=== PATIENT | female | born 1980 | race American Indian/Alaskan Native ===

== ENCOUNTER 2019-01-01 10:29 | Emergency (ER) | payer SELFPAY ==
[2019-01-01 10:58] VITALS: BP 160/110
--- NOTE | 2019-01-01 11:42 | Emergency Department Report ---
Minor Respiratory - HPI Chief Complaint: Upper Respiratory Infection Stated Complaint: FLU LIKE SYMPTOMS Time Seen by Provider: 01/01/19 11:15 Duration: 3 Days Pain Location: Chest (soreness in the chest with coughing) Minor Respiratory: Yes Able to Tolerate Fluids, Yes Cough (yellow sputum), Yes Chest Pain, No Rhinorrhea, No Sore Throat, No Ear Pain, No Sick Contacts, No Hemoptysis, No Shortness of Breath, No Fever ED Review of Systems ROS: Stated complaint: FLU LIKE SYMPTOMS Other details as noted in HPI Comment: All other systems reviewed and negative ED Past Medical Hx - Past Medical History Previous Medical History?: Yes Hx Hypertension: Yes - Surgical History Past Surgical History?: No - Social History Smoking Status: Never Smoker Substance Use Type: Alcohol, Marijuana Minor Respiratory Exam - Exam General: Vital signs noted. No distress. Alert and acting appropriately. HEENT: Yes Moist Mucous Membranes, No Pharyngeal Erythema, No Pharyngeal Exudates, No Rhinorrhea, No Conjuctival Injection, No Frontal Tenderness, No Maxillary Tenderness Ear: Neither TM Bulge, Neither TM Erythema, Neither EAC Pain, Neither EAC Discharge Neck: Yes Supple, No Adenopathy Lungs: Yes Good Air Exchange, No Wheezes, No Ronchi, No Stridor, No Cough, No Labored Respirations, No Retractions, No Use of Accessory Muscles, No Other Abnormal Lung Sounds Heart: Yes Regular, No Murmur Abdomen: Yes Normal Bowel Sounds, No Tenderness, No Peritoneal Signs Skin: No Rash, No Edema Neurologic: Alert and oriented, no deficits. Musculoskeletal: Unremarkable. ED Course Vital Signs 01/01/19 10:56 Temperature 98 F Pulse Rate 91 H Respiratory 18 Rate Blood Pressure 160/110 O2 Sat by Pulse 99 Oximetry ED Medical Decision Making - Medical Decision Making Patient requests a test before receiving her x-ray. (Test is negative. Patient was called by radiology 3-4 times and did not answer appears to have left the emergency department. Patient left without telling anyone that she would be leaving. Critical care attestation.: If time is entered above; I have spent that time in minutes in the direct care of this critically ill patient, excluding procedure time. ED Disposition Clinical Impression: Cough Disposition: DC-07 LEFT AGAINST MED ADVICE Is pt being admited?: No Does the pt Need Aspirin: No Condition: Stable Referrals: MARGO MINOR MD [Primary Care Provider] - 3-5 Days Time of Disposition: 14:25
[2019-01-01 13:47] LABS: HCG Qualitative,Urine Negative (Negative)
== END 2019-01-01 14:31 | disposition left against medical advice (07) ==
LOC: ED 10:29
DX: R05 Cough (principal); I10 Essential (primary) hypertension; F12.10 Cannabis abuse, uncomplicated
CPT/HCPCS: 81025; 99283

== ENCOUNTER 2021-12-22 04:38 | Emergency (ER) | payer SELFPAY ==
[2021-12-22 04:45] VITALS: BP 170/106
--- NOTE | 2021-12-22 05:33 | XRay Report ---
CHEST 2 VIEWS INDICATION / CLINICAL INFORMATION: CHEST PAIN. COMPARISON: None available. FINDINGS: SUPPORT DEVICES: None. HEART / MEDIASTINUM: Borderline to mild cardiomegaly. LUNGS / PLEURA: No significant pulmonary or pleural abnormality. No pneumothorax. ADDITIONAL FINDINGS: No significant additional findings. IMPRESSION: 1. No active cardiopulmonary disease. Signer Name: Coy Torrez II, MD Signed: 12/22/2021 5:28 AM Workstation Name: [id number]
[2021-12-22] MEDS ORDERED: SIMETHICONE 80 MG CHEW TAB PO ONE (06:58)
[2021-12-22] MEDS ORDERED: KETOROLAC 30 MG/1 ML INJ IV ONE (06:58)
--- NOTE | 2021-12-22 07:03 | Emergency Department Report ---
ED Chest Pain HPI - General Chief Complaint: Chest Pain Stated Complaint: CHEST PAIN Time Seen by Provider: 12/22/21 06:45 Source: patient, EMS Mode of arrival: Stretcher Limitations: No Limitations - History of Present Illness Initial Comments: 41-year-old female with no significant past medical history here with complaint of chest pain. Patient reports that she was resting when she developed sharp right-sided chest pain that radiates into the right shoulder. Patient states that her pain initially was 6 out of 10 and now is currently 10 out of 10. She states that she feels like the pain is behind her right breast. She states she has worsening chest pain when she takes a deep breath. She denies any fevers chills or coughing. She denies any lower extremity edema or pain. She does not have family history of cardiac disease nor pulmonary embolism. Severity scale (0 -10): 10 - Related Data Previous Rx's Medication Instructions Recorded Last Taken Type Acetaminophen/Codeine [Tylenol 1 tab PO Q6H #10 tab 02/19/19 Unknown Rx /Codeine # 3 tab] Clindamycin [Clindamycin CAP] 300 mg PO Q8H #21 cap 02/19/19 Unknown Rx Ibuprofen [Motrin] 800 mg PO Q8HR #30 tablet 02/19/19 Unknown Rx Allergies Allergy/AdvReac Type Severity Reaction Status Date / Time No Known Allergies Allergy Verified 02/19/19 15:22 Heart Score - HEART Score History: Slightly suspicious EKG: Normal Age: < 45 Risk factors: No known risk factors Troponin: < normal limit HEART Score: 0 - EKG Read Time Time EKG Completed: 04:58 EKG Read Time: 04:58 ED Review of Systems ROS: Stated complaint: CHEST PAIN Other details as noted in HPI Constitutional: denies: chills, fever Eyes: denies: eye pain, eye discharge, vision change ENT: denies: ear pain, throat pain Respiratory: denies: cough, shortness of breath, wheezing Cardiovascular: chest pain. denies: dyspnea on exertion Endocrine: no symptoms reported Gastrointestinal: denies: abdominal pain, nausea, diarrhea Genitourinary: denies: urgency, dysuria, discharge Musculoskeletal: denies: back pain, joint swelling, arthralgia Skin: denies: rash, lesions Neurological: denies: headache, weakness, paresthesias Psychiatric: denies: anxiety, depression Hematological/Lymphatic: denies: easy bleeding, easy bruising ED Past Medical Hx - Past Medical History Previous Medical History?: Yes Hx Hypertension: Yes - Surgical History Past Surgical History?: No - Social History Smoking Status: Current Every Day Smoker Substance Use Type: None - Medications Home Medications: Home Medications Medication Instructions Recorded Confirmed Last Taken Type Acetaminophen/Codeine [Tylenol 1 tab PO Q6H #10 tab 02/19/19 Unknown Rx /Codeine # 3 tab] Clindamycin [Clindamycin CAP] 300 mg PO Q8H #21 cap 02/19/19 Unknown Rx Ibuprofen [Motrin] 800 mg PO Q8HR #30 tablet 02/19/19 Unknown Rx ED Physical Exam - General Limitations: No Limitations General appearance: alert, in no apparent distress - Head Head exam: Present: atraumatic, normocephalic - Eye Eye exam: Present: normal appearance - ENT ENT exam: Present: mucous membranes moist - Neck Neck exam: Present: normal inspection - Respiratory Respiratory exam: Present: normal lung sounds bilaterally. Absent: respiratory distress, wheezes - Cardiovascular Cardiovascular Exam: Present: regular rate, normal rhythm. Absent: systolic murmur, diastolic murmur, rubs, gallop - GI/Abdominal GI/Abdominal exam: Present: soft, normal bowel sounds - Rectal Rectal exam: Present: deferred - Extremities Exam Extremities exam: Present: normal inspection - Back Exam Back exam: Present: normal inspection - Neurological Exam Neurological exam: Present: alert, oriented X3 - Psychiatric Psychiatric exam: Present: normal affect, normal mood - Skin Skin exam: Present: warm, dry, intact, normal color. Absent: rash ED Course Vital Signs 12/22/21 04:45 Temperature 98 F Pulse Rate 65 Respiratory 20 Rate Blood Pressure 170/106 [Right] O2 Sat by Pulse 99 Oximetry - Reevaluation(s) Reevaluation #1: 12/22/21 07:57 Dimer negative. Patient likely to be discharged if repeat troponin is negative. Reevaluation #2: 12/22/21 12:40 Patient eloped prior to completion of evaluation. ED Medical Decision Making - Lab Data Result diagrams: 12/22/21 07:26 12/22/21 07:26 - EKG Data -: EKG Interpreted by [place] EKG shows normal: sinus rhythm Rate: normal - Radiology Data Radiology results: report reviewed, image reviewed - Medical Decision Making Patient is a 41-year-old female with past medical history noncontributory who presents emergency department with complaint of right-sided chest pain. She reports that sharp chest pain that worsens with deep breathing. Considered is pulmonary embolism and a D-dimer is collected. EKG is performed which shows no acute abnormalities. Plan for ACS rule out as patient is low risk for cardiac d isease. Will give Toradol and a dose of simethicone to see if this improves her symptoms the patient to be reassessed after labs and imaging and medications. Critical care attestation.: If time is entered above; I have spent that time in minutes in the direct care of this critically ill patient, excluding procedure time. ED Disposition Clinical Impression: Chest pain Disposition: HOME / SELF CARE / HOMELESS Is pt being admited?: No Does the pt Need Aspirin: No Condition: Stable Instructions: Nonspecific Chest Pain, Adult
[2021-12-22 07:39] LABS: Basophils % (Auto) 0.6 % (0.0-1.8); Eosinophils # (Auto) 0.1 K/mm3 (0.0-0.4); Hematocrit 37.7 % (30.3-42.9); Hemoglobin 13.2 gm/dl (10.1-14.3); Lymphocytes # (Auto) 1.3 K/mm3 (1.2-5.4); Lymphocytes % (Auto) 14.9 % (13.4-35.0); Mean Corpuscular HGB Conc 35 % (30-34); Mean Corpuscular Volume 76 fl (79-97); Monocytes # (Auto) 0.4 K/mm3 (0.0-0.8); Monocytes % (Auto) 5.1 % (0.0-7.3); Platelet Count 359 K/mm3 (140-440); Red Blood Count 4.96 M/mm3 (3.65-5.03); Red Cell Distribution Width 14.7 % (13.2-15.2)
[2021-12-22 08:05] LABS: Alanine Aminotransferase 11 units/L (7-56); Albumin 4.1 g/dL (3.9-5); BUN/Creatinine Ratio 17; Blood Urea Nitrogen 15 mg/dL (7-17); Calcium 9.3 mg/dL (8.4-10.2); Hemolysis Index 7
--- NOTE | 2021-12-23 09:16 | Electrocardiograph Report ---
[facility] Test Date: 2021-12-22 Test Time: 04:58:23 Pat Name: KATHRYN COKER Department: Room: Gender: F Draw In Hand: RO : 1980 Requested By: ED DOC Order Number: [id number] Reading MD: Luis Felipe Lou Measurements Intervals [place] Rate: 66 P: 57 [place]: 162 QRS: 61 QRSD: 88 T: 54 QT: 431 QTc: 453 Interpretive Statements Sinus rhythm No previous ECG available for comparison Electronically Signed On 12-23-2021 9:15:39 EST by Luis Felipe Lou
== END 2021-12-23 23:44 | disposition home or self-care (01) ==
LOC: ED 04:38
DX: R07.9 Chest pain, unspecified (principal)
CPT/HCPCS: 36415; 71046; 80053; 84484; 85025; 85379; 93005; 96374; 99284; J1885